=== PATIENT | male | born 2000 | race Hispanic/Latino ===

== ENCOUNTER 2023-12-23 17:13 | Emergency (ER) | payer SELFPAY ==
[2023-12-23] MEDS ORDERED: ONDANSETRON 4 MG/2 ML VIAL ONE (18:31)
[2023-12-23] MEDS ORDERED: FAMOTIDINE 20 MG/2 ML VIAL IV ONE (18:31)
[2023-12-23] MEDS ORDERED: NA CHLORIDE 0.9% 1,000 ML ONE (18:31)
[2023-12-23] MEDS ORDERED: DIPHENHYDRAMINE 50 MG/ML VIAL ONE (18:31)
[2023-12-23] MEDS ORDERED: KETOROLAC 30 MG/ML INJ ONE (18:31)
[2023-12-23 18:52] LABS: Absolute Lymphocytes (CBC) 1.7 K/uL (0.7-4.9); Absolute Neutrophil 6.2 K/uL (1.8-8.0); Basophils % 0.2 % (0-1.3); Eosinophils % 0.3 % (0-4.4); Hemoglobin 13.8 g/dL (13.6-17.9); Lymphocytes % 18.9 % (15.3-44.8); MCHC 34.4 g/dL (32.0-36.0); MCV 84.4 fL (80-100); MPV 8.6 fL (7.6-11.3); Neutrophils % 69.6 % (41.7-73.7); Nucleated Red Blood Cells % 0.1 % (0-0); Platelets 214 thou/uL (152-406); RBC Red Blood Cell Count 4.74 M/uL (4.33-5.43); Red Cell Distribution Width 12.8 % (12.1-15.2)
[2023-12-23 19:08] LABS: Albumin 4.4 g/dL (3.4-5.0); Albumin/Globulin Ratio 1.4 (1.1-1.8); Anion Gap 8.1 mEq/L (5.0-15.0); Bilirubin Total 1.2 mg/dL (0.2-1.0); Globulin 3.1 g/dL (2.3-3.5); Potassium 3.1 mEq/L (3.5-5.1); Protein, Total 7.5 g/dL (6.4-8.2)
[2023-12-23 19:13] LABS: Specific Gravity < 1.005 (1.005-1.030); Urine Bilirubin NEGATIVE (Negative); Urine Blood Negative (Negative); Urine Clarity Clear (Clear); Urine Color Colorless (Yellow); Urine Glucose NEGATIVE (Negative); Urine Ketones NEGATIVE (Negative); Urine Microscopic Reflex YN NO UMIC; Urine Nitrite NEGATIVE (Negative); Urine Protein NEGATIVE (Negative); Urine Urobilinogen Normal (Normal)
--- NOTE | 2023-12-23 20:05 | RAD REPORT ---
EXAM DESCRIPTION: RAD - Lumbar Spine 3 Views - 12/23/2023 7:50 pm CLINICAL HISTORY: PAIN COMPARISON: No comparisons FINDINGS/IMPRESSION: No acute fracture. No malalignment. No significant focal degenerative changes.
[2023-12-23] MEDS ORDERED: POTASSIUM 25 MEQ EFFERV TAB ONE (20:28)
--- NOTE | 2023-12-23 21:16 | ER ---
Nurse's Notes [facility] Name: Cali Snyder Age: 23 yrs Sex: Male : 2000 Arrival Date: 12/23/2023 Time: 17:13 Bed 17 Private MD: Diagnosis: Nausea with vomiting, unspecified;Insomnia, unspecified;Low back pain Presentation: 12/22 17:42 Chief complaint: Patient states: LOW BACK PAIN AND VOMITING X3 DAYS. PT DESCRIBES THE cm10 PAIN A PRESSURE AND RATES IT A 6/10. PT ALSO REPORTS THAT HE HAS NOT BEEN ABLE TO SLEEP SINCE HE QUIT VAPING 3 DAYS AGO. Coronavirus screen: Client denies travel out of the [place] in the last 14 days. At this time, the client does not indicate any symptoms associated with coronavirus-19. Ebola Screen: Patient denies travel to an Ebola-affected area in the 21 days before illness onset. No symptoms or risks identified at this time. Initial Sepsis Screen: Does the patient meet any 2 criteria? No. Patient's initial sepsis screen is negative. Does the patient have a suspected source of infection? No. Patient's initial sepsis screen is negative. Risk Assessment: Do you want to hurt yourself or someone else? Patient reports no desire to harm self or others. Onset of symptoms was December 23, 2023. 17:42 Method Of Arrival: Ambulatory cm10 17:42 Acuity: LIZBETH 3 cm10 Triage Assessment: 17:45 General: Appears in no apparent distress. comfortable, Behavior is calm, cooperative. cm10 Pain: Complains of pain in low back area Pain does not radiate. Pain currently is 6 out of 10 on a pain scale. Quality of pain is described as pressure. Neuro: No deficits noted. Level of Consciousness is awake, alert, obeys commands, Oriented to person, place, time, situation, Appropriate for age. Respiratory: No deficits noted. Airway is patent Respiratory effort is even, unlabored, Respiratory pattern is regular, symmetrical. GI: No deficits noted. Reports diarrhea, nausea, vomiting. Derm: No deficits noted. Skin is intact, Skin is pink, warm \T\ dry. Musculoskeletal: No deficits noted. Range of motion: intact in all extremities. Historical: - Allergies: 17:44 EXCEDRIN; cm10 - Home Meds: 17:44 None [Active]; cm10 - PMHx: 17:44 None; cm10 - PSHx: 17:44 None; cm10 - Immunization history:: Adult Immunizations up to date. - Infectious Disease History:: Denies. - Social history:: Smoking status: Reported history of juuling and/or vaping. Screenin:47 [facility] ED Fall Risk Assessment (Adult) History of falling in the last 3 months, cm10 including since admission No falls in past 3 months (0 pts) Confusion or Disorientation No (0 pts) Intoxicated or Sedated No (0 pts) Impaired Gait No (0 pts) Mobility Assist Device Used No (0 pt) Altered Elimination No (0 pt) Score/Fall Risk Level 0 - 2 = Low Risk Oriented to surroundings, Maintained a safe environment, Provided non-skid footwear, Hourly rounding (assess needs \T\ fall precautionary measures) done. Abuse screen: Denies threats or abuse. Denies injuries from another. Nutritional screening: No deficits noted. Tuberculosis screening: No symptoms or risk factors identified. Assessment: 19:48 General: Appears in no apparent distress. Behavior is calm, cooperative. Pain: Denies tm6 pain. Neuro: Level of Consciousness is awake, alert, obeys commands, Oriented to person, place, time, situation. Cardiovascular: No deficits noted. Patient's skin is warm and dry. Respiratory: Airway is patent Respiratory effort is even, unlabored, Respiratory pattern is regular, symmetrical. GI: Abdomen is flat, non-distended, Abd is soft and non tender X 4 quads. : No signs and/or symptoms were reported regarding the genitourinary system. EENT: No signs and/or symptoms were reported regarding the EENT system. Derm: No signs and/or symptoms reported regarding the dermatologic system. Musculoskeletal: Reports pressure in low back. 21:18 Reassessment: Patient appears in no apparent distress at this time. Patient and/or tm6 family updated on plan of care and expected duration. Pain level reassessed. Patient is alert, oriented x 3, equal unlabored respirations, skin warm/dry/pink. Vital Signs: 17:42 BP 127 / 91; Pulse 70; Resp 18; Temp 98.2; Pulse Ox 100% ; Weight 52.16 kg; Height 5 cm10 ft. 6 in. ; Pain 6/10; 19:47 BP 109 / 69; Pulse 89; Pulse Ox 100% on R/A; Pain 0/10; tm6 21:18 BP 125 / 91; Pulse 83; Resp 17; Temp 98.2; Pulse Ox 99% on R/A; Pain 0/10; tm6 17:42 Body Mass Index 18.56 (52.16 kg, 167.64 cm) cm10 17:42 Pain Scale: Adult cm10 19:47 Pain Scale: Adult tm6 21:18 Pain Scale: Adult tm6 ED Course: 17:21 Patient arrived in ED. mg5 17:31 David Elizondo PA is PHCP. cp 17:31 David Hebert MD is Attending Physician. cp 17:42 Silvia Thomson RN is Primary Nurse. cm10 17:44 Triage completed. cm10 17:47 Arm band placed on Patient placed in an exam room, on a stretcher. cm10 17:47 Patient has correct armband on for positive identification. Bed in low position. Call cm10 light in reach. Side rails up X 1. Provided Education on: ER PROCESS AND PROCEDURES.. Pulse ox on. NIBP on. 18:46 CBC with Diff Sent. cm10 18:46 CMP Sent. cm10 18:46 Lipase Sent. cm10 18:46 Urinalysis w/ reflexes Sent. cm10 18:46 Initial lab(s) drawn, by in, sent to lab. Urine collected: clean catch specimen. cm10 Inserted saline lock: 20 gauge in right antecubital area, using aseptic technique. Blood collected. Flushed with 10 mL NS. 19:11 Report given to SUPA Villagomez. cm10 19:45 Dahlia Koenig RN is Primary Nurse. tm6 19:52 XRAY Lumbar Spine (3 Views) In Process Unspecified. EDMS 21:18 No provider procedures requiring assistance completed. IV discontinued, intact, tm6 bleeding controlled, No redness/swelling at site. Pressure dressing applied. Administered Medications: 18:45 Drug: diphenhydrAMINE IVP 25 mg IVP once Route: IVP; Site: right antecubital; cm10 19:47 Follow up: Response: No adverse reaction; Marked relief of symptoms tm6 18:46 Drug: NS 0.9% IV 1000 ml IV at 1 bolus Per protocol; 1000 mL bolus Route: IV; Rate: 1 cm10 bolus; Site: right antecubital; 19:47 Follow up: Response: No adverse reaction; IV Status: Completed infusion; IV Intake: tm6 1000ml 18:46 Drug: Famotidine IVP 20 mg IVP once; dilute with 10 mL 0.9% NaCl; give over 2 minutes cm10 Route: IVP; Site: right antecubital; 19:47 Follow up: Response: No adverse reaction; Marked relief of symptoms tm6 18:46 Drug: TORadol - Ketorolac IVP 15 mg IVP once Route: IVP; Site: right antecubital; cm10 19:46 Follow up: Response: No adverse reaction; Marked relief of symptoms tm6 18:46 Drug: Ondansetron IVP 4 mg IVP once; over 2 minutes Route: IVP; Site: right antecubital;cm10 19:47 Follow up: Response: No adverse reaction; Marked relief of symptoms tm6 20:37 Drug: Potassium PO Effervescent Tablet 50 mEq PO once; dissolve in 4 ounces of water or tm6 juice Route: PO; 21:05 Follow up: Response: No adverse reaction tm6 Medication: 17:47 VIS not applicable for this client. cm10 Intake: 19:47 IV: 1000ml; Total: 1000ml. tm6 Outcome: 21:15 Discharge ordered by . cp 21:18 Discharged to home ambulatory, with family, tm6 21:18 Condition: stable 21:18 Discharge instructions given to patient, family, Instructed on discharge instructions, follow up and referral plans. medication usage, Demonstrated understanding of instructions, follow-up care, medications, Prescriptions given X 2, 21:24 Patient left the ED. tm6 Signatures: Dispatcher [employer] EDMS David Elizondo PA PA cp Martinez, Clarissa RN RN cm10 Nichole Nuno mg5 Dahlia Koenig RN RN tm6
--- NOTE | 2023-12-23 21:16 | EDPHYS ---
Physician Documentation [facility] Name: Cali Snyder Age: 23 yrs Sex: Male : 2000 Arrival Date: 12/23/2023 Time: 17:13 Bed 17 Private MD: ED Physician David Hebert HPI: 12/22 18:05 This 23 yrs old Male presents to ER via Ambulatory with complaints of cp Vomiting, Havent Slept in 3 Days. 18:05 The patient presents to the emergency department with nausea, that is moderate, cp vomiting, that is intermittent, described as bilious. Onset: The symptoms/episode began/occurred 3 day(s) ago. 18:05 Patient reports inability to sleep and N/V times 3 days since quitting vaping. cp Historical: - Allergies: 17:44 EXCEDRIN; cm10 - Home Meds: 17:44 None [Active]; cm10 - PMHx: 17:44 None; cm10 - PSHx: 17:44 None; cm10 - Immunization history:: Adult Immunizations up to date. - Infectious Disease History:: Denies. - Social history:: Smoking status: Reported history of juuling and/or vaping. ROS: 18:05 Constitutional: Negative for body aches, chills, fever, poor PO intake, cp 18:05 Abdomen/GI: Positive for nausea and vomiting, 18:05 Psych: Positive for insomnia, 18:05 All other systems are negative, Vital Signs: 17:42 BP 127 / 91; Pulse 70; Resp 18; Temp 98.2; Pulse Ox 100% ; Weight 52.16 kg; Height 5 cm10 ft. 6 in. ; Pain 6/10; 19:47 BP 109 / 69; Pulse 89; Pulse Ox 100% on R/A; Pain 0/10; tm6 21:18 BP 125 / 91; Pulse 83; Resp 17; Temp 98.2; Pulse Ox 99% on R/A; Pain 0/10; tm6 17:42 Body Mass Index 18.56 (52.16 kg, 167.64 cm) cm10 17:42 Pain Scale: Adult cm10 19:47 Pain Scale: Adult tm6 21:18 Pain Scale: Adult tm6 MDM: 17:31 Patient medically screened. cp 12/22 18:01 Order name: CBC with Diff; Complete Time: 19:36 cp 08/ 18:01 Order name: CMP; Complete Time: 19:36 cp 12/22 18:01 Order name: Lipase; Complete Time: 19:36 cp 12/22 18:01 Order name: Urinalysis w/ reflexes; Complete Time: 19:36 cp 08/ 19:37 Order name: XRAY Lumbar Spine (3 Views); Complete Time: 20:19 cp 12/22 18:01 Order name: IV Saline Lock; Complete Time: 18:45 cp 12/22 18:01 Order name: Labs collected and sent; Complete Time: 18:45 cp Administered Medications: 18:45 Drug: diphenhydrAMINE IVP 25 mg IVP once Route: IVP; Site: right antecubital; cm10 19:47 Follow up: Response: No adverse reaction; Marked relief of symptoms tm6 18:46 Drug: NS 0.9% IV 1000 ml IV at 1 bolus Per protocol; 1000 mL bolus Route: IV; Rate: 1 cm10 bolus; Site: right antecubital; 19:47 Follow up: Response: No adverse reaction; IV Status: Completed infusion; IV Intake: tm6 1000ml 18:46 Drug: Famotidine IVP 20 mg IVP once; dilute with 10 mL 0.9% NaCl; give over 2 minutes cm10 Route: IVP; Site: right antecubital; 19:47 Follow up: Response: No adverse reaction; Marked relief of symptoms tm6 18:46 Drug: TORadol - Ketorolac IVP 15 mg IVP once Route: IVP; Site: right antecubital; cm10 19:46 Follow up: Response: No adverse reaction; Marked relief of symptoms tm6 18:46 Drug: Ondansetron IVP 4 mg IVP once; over 2 minutes Route: IVP; Site: right antecubital;cm10 19:47 Follow up: Response: No adverse reaction; Marked relief of symptoms tm6 20:37 Drug: Potassium PO Effervescent Tablet 50 mEq PO once; dissolve in 4 ounces of water or tm6 juice Route: PO; 21:05 Follow up: Response: No adverse reaction tm6 Disposition Summary: 12/23/23 21:15 Discharge Ordered Notes: Location: Home cp Problem: new cp Symptoms: have improved cp Condition: Stable cp Diagnosis - Nausea with vomiting, unspecified cp - Insomnia, unspecified cp - Low back pain cp Followup: cp - With: Private Physician - When: 2 - 3 days - Reason: Worsening of condition Discharge Instructions: - Discharge Summary Sheet cp - Acute Back Pain, Adult cp - Insomnia cp - Nausea and Vomiting, Adult cp - Heat Therapy cp - Back Exercises cp Forms: - Medication Reconciliation Form cp - Antibiotic Education cp - Prescription Opioid Use cp - Patient Portal Instructions cp - Leadership Thank You Letter cp - Work release form tm6 Prescriptions: - Vistaril 25 mg Oral capsule - take 2 capsule ORAL route Every night As needed; 20 capsule; Refills: 0, cp Product Selection Permitted - Zofran 4 mg Oral Tablet - take 1 tablet ORAL route every 12 hours As needed; 20 tablet; Refills: 0, cp Product Selection Permitted Signatures: Dispatcher [employer] EDMS David Elizondo PA PA cp Martinez, Clarissa RN RN cm10 Dahlia Koenig RN RN tm6 Corrections: (The following items were deleted from the chart) 18:02 18:02 CBC+H.LAB.BRZ ordered. EDMS EDMS 18:02 18:02 COMPREHENSIVE METABOLIC PANEL+C.LAB.BRZ ordered. EDMS EDMS 18:02 18:02 LIPASE+C.LAB.BRZ ordered. EDMS EDMS 18:02 18:02 Urinalysis+U.LAB.BRZ ordered. EDMS EDMS
[2023-12-23 21:41] VITALS: TEMP 98.2
[2023-12-23 21:43] VITALS: BP 125/91; O2SAT 99
== END 2023-12-23 21:24 | disposition home or self-care (01) ==
LOC: ER 17:13
DX: R11.2 Nausea with vomiting, unspecified (principal); G47.00 Insomnia, unspecified; M54.50 Low back pain, unspecified
CPT/HCPCS: 36415; 72100; 80053; 81003; 83690; 85025; 96361; 96374; 96375; 99284; J1200; J2405; J7030

== ENCOUNTER 2024-09-23 13:13 | Emergency (ER) | payer BC, SELFPAY ==
--- OUTSIDE RECORDS SUMMARY | 2024-09-23 13:17 | XMS REPORT | Continuity of Care Document ---
Author Name Unknown Address [address] [place] [address] [address]. [address] [place] [address] [facility] [address] [facility] 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 Ordering Clinician Indication Dosage Frequency Signature (SIG) Comments Components Source doxycycline monohydrate 100 mg tablet 08-16 00:00: 00 Yes 1mg Richi Panchal montelukast 10 mg tablet 2023-05 2 00:00: 00 Yes 1mg Richi Panchal mirtazapine 7.5 mg tablet 12-25 00:00: 00 Yes 1mg Richi Panchal APPLY SPARINGLY TO AFFECTED AREA(S) TWICE DAILY 12-29 00:00: 00 Yes 1 Richi Panchal TAKE 1 TABLET BY MOUTH TWICE DAILY 09-29 00:00: 00 01-12 00:00 :00 No 1000 Richi Panchal TAKE 1 TABLET TWICE DAILY. 09-29 00:00: 00 01-12 00:00 :00 No 4 Richi Panchal TAKE 1 TABLET DAILY. 09-29 00:00: 00 01-12 00:00 :00 No 20 Richi Panchal TAKE 1 TABLET TWICE DAILY. 09-29 00:00: 00 01-12 00:00 :00 No 50 Richi Panchal TAKE 1 CAPSULE TWICE DAILY. 09-29 00:00: 00 01-12 00:00 :00 No 100 Richi Panchal Vital Signs Vital Name Observation Time Observation Value Comments S ource BP Systolic 2024-08-16 13:19:00 122 mm[Hg] Step hen F Abdulkadir BP Diastolic 2024-08-16 13:19:00 88 mm[Hg] Stan phen F Abdulkadir Weight Measured 2024-08-16 13:19:00 118.00 pounds Richi F Abdulkadir Height Measured 2024-08-16 13:19:00 66.00 inches Richi F Abdulkadir Body Temperature 2024-08-16 13:19:00 98.20 degrees Richi F Abdulkadir Heart Rate 2024-08-16 13:19:00 82.00 /min Mary Jane en F Abdulkadir Respiratory Rate 2024-08-16 13:19:00 18.00 /min Richi F Abdulkadir BP Systolic 2024-04-26 09:15:00 116 mm[Hg] Step hen F Abdulkadir BP Diastolic 2024-04-26 09:15:00 79 mm[Hg] Stan phen F Abdulkadir Weight Measured 2024-04-26 09:15:00 118.80 pounds Richi F Abdulkadir Height Measured 2024-04-26 09:15:00 66.00 inches Richi F Abdulkadir Body Temperature 2024-04-26 09:15:00 98.20 degrees Richi F Abdulkadir Heart Rate 2024-04-26 09:15:00 86.00 /min Mary Jane en F Abdulkadir Respiratory Rate 2024-04-26 09:15:00 18.00 /min Richi F Abdulkadir BP Diastolic 2024-01-09 12:40:00 78 mm[Hg] Stan phen F Abdulkadir Weight Measured 2024-01-09 12:40:00 113.80 pounds Richi F Abdulkadir Height Measured 2024-01-09 12:40:00 66.00 inches Richi F Abdulkadir Body Temperature 2024-01-09 12:40:00 97.60 degrees Richi F Abdulkadir Heart Rate 2024-01-09 12:40:00 78.00 /min Mary Jane en F Abdulkadir Respiratory Rate 2024-01-09 12:40:00 Richi F Abdulkadir BP Systolic 2024-01-09 12:40:00 121 mm[Hg] Step hen F Abdulkadir BP Systolic 2023-01-09 16:46:00 91 mm[Hg] Step hen F Abdulkadir BP Diastolic 2023-01-09 16:46:00 57 mm[Hg] Stan phen F Abdulkadir Weight Measured 2023-01-09 16:46:00 115.40 pounds Richi F Abdulkadir Height Measured 2023-01-09 16:46:00 66.00 inches Richi F Abdulkadir Body Temperature 2023-01-09 16:46:00 97.60 degrees Richi F Abdulkadir Heart Rate 2023-01-09 16:46:00 61.00 /min Mary Jane en F Abdulkadir Respiratory Rate 2023-01-09 16:46:00 Richi F Abdulkadir BP Systolic 2022-12-29 10:55:00 77 mm[Hg] Step hen F Abdulkadir BP Diastolic 2022-12-29 10:55:00 50 mm[Hg] Stan phen F Abdulkadir Weight Measured 2022-12-29 10:55:00 113.80 pounds Richi F Abdulkadir Height Measured 2022-12-29 10:55:00 66.00 inches Richi F Abdulkadir Body Temperature 2022-12-29 10:55:00 97.50 degrees Richi F Abdulkadir Heart Rate 2022-12-29 10:55:00 77.00 /min Mary Jane en F Abdulkadir Respiratory Rate 2022-12-29 10:55:00 Richi F Abdulkadir BP Systolic 2022-09-29 09:26:00 125 mm[Hg] Step hen F Abdulkadir BP Diastolic 2022-09-29 09:26:00 88 mm[Hg] Stan phen F Abdulkadir Weight Measured 2022-09-29 09:26:00 114.40 pounds Richi F Abdulkadir Height Measured 2022-09-29 09:26:00 66.00 inches Richi F Abdulkadir Body Temperature 2022-09-29 09:26:00 98.00 degrees Richi F Abdulkadir Heart Rate 2022-09-29 09:26:00 69.00 /min Mary Jane en F Abdulkadir Respiratory Rate 2022-09-29 09:26:00 Richi F Abdulkadir BP Systolic 2022-09-26 13:24:00 106 mm[Hg] Step hen F Abdulkadir BP Diastolic 2022-09-26 13:24:00 63 mm[Hg] Stan phen F Abdulkadir Weight Measured 2022-09-26 13:24:00 111.60 pounds Richi F Abdulkadir Height Measured 2022-09-26 13:24:00 66.00 inches Richi F Abdulkadir Body Temperature 2022-09-26 13:24:00 97.90 degrees Richi Panchal Heart Rate 2022-09-26 13:24:00 67.00 /min Mary Jane Panchal Respiratory Rate 2022-09-26 13:24:00 24.00 /min Richi Panchal Encounters Start Date/Time End Date/Time Encounter Type Admission Type Attending [facility] Care Department Encounter ID Source 2024-08-16 13:14:11 2024-08-16 13:14:11 Outpatient SFA SFA [id number] Richi Panchal 2024-08-16 00:00:00 2024-08-16 00:00:00 Outpatient Visit SFA [id number] Richi Panchal 2024-04-26 09:06:55 2024-04-26 09:06:55 Outpatient SFA SFA [id number] Richi Panchal 2024-04-26 00:00:00 2024-04-26 00:00:00 Outpatient Visit SFA [id number] Richi Panchal 2024-02-06 09:22:43 2024-02-06 09:22:43 Outpatient SFA SFA [id number] Richi Panchal 2024-01-09 12:34:45 2024-01-09 12:34:45 Outpatient SFA SFA [id number] Richi Panchal 2023-12-26 13:20:42 2023-12-26 13:20:42 Outpatient SFA SFA [id number] Richi Panchal 2023-12-25 14:47:13 2023-12-25 14:47:13 Outpatient SFA SFA [id number] Richi Panchal 2023-01-09 16:45:55 2023-01-09 16:45:55 Outpatient SFA SFA [id number] Richi Panchal 2022-12-29 10:55:10 2022-12-29 10:55:10 Outpatient SFA SFA [id number] Richi Panchal 2022-09-29 09:17:2022-09-29 09:17:41 Outpatient [facility] [id number] Richi Panchal 2022-09-26 13:19:00 2022-09-26 13:19:00 Outpatient [facility] [id number] Richi Panchal Results Test Description Test Time Test Comments Results Result Co mments Source HERPES SIMPLEX 1/2 AB, IgG [id number] 05:50:20* Test Item Value Reference Range Interpretation Comme nts HERPES SIMPLEX 1 AB, IgG (test code = 36315) 0.025 INDEX SEE BELOW INTERPRETATION U NITS RANGE ----- ----- NON-REACTIVE INDEX <1.000 REACTIVE INDEX >=1.000 HERPES SIMPLEX 2 AB, IgG (test code = 75668) 0.080 INDEX SEE BELOW INTERPRETATION U NITS RANGE ----- ----- NON-REACTIVE INDEX <1.000 REACTIVE INDEX >=1.000 UNLESS OTHERWISE INDICATED, ALL TESTING PERFORMED AT [facility] [address] [place] [address] GRINDER MACHINE SETTER: ELIZABETH CAMPBELL M.D. [place] NUMBER [id number] [facility] [place]. [id number] HERPES SIMPLEX [id number] 00:00:00* Test Item Value Reference Range Interpretation Comme nts HERPES SIMPLEX AB, IgM (test code = 70404) 0.82 INDEX Richi PanchalHERPES SIMPLEX 1/2 [id number] 00:00:00* Test Item Value Reference Range Interpretation Comme nts HERPES SIMPLEX 1 AB, IgG (te st code = 18244) 0.025 INDEX HERPES SIMPLEX 2 AB, IgG (te st code = 25157) 0.080 INDEX Richi RomeroPES SIMPLEX [id number] 00:00:00* Test Item Value Reference Range Interpretation Comme nts HERPES SIMPLEX AB, IgM (test code = 02828) 0.82 INDEX Richi PanchalHERPES SIMPLEX 1/2 [id number] 00:00:00* Test Item Value Reference Range Interpretation Comme nts HERPES SIMPLEX 1 AB, IgG (te st code = 70386) 0.025 INDEX HERPES SIMPLEX 2 AB, IgG (te st code = 44936) 0.080 INDEX Richi Frye, [id number] 13:31:58SPECIMEN NUMBER: [id number] CULTURE, ROUTINE SPECIMEN NUMBER: [id number] SPECIMEN COMMENT: PENIS GLAND ;[id number] SOURCE: PENIS REPORT STATUS: FINAL FINAL REPORT: 01/04/2023 ABUNDANT MIXED MICROBIAL POPULATION NO FURTHER WORKUPNOTE:2023-01-03 06:03:56* Test Item Value Reference Range Interpretation Comme nts NOTE: (test code = 998) (NOTE) IN ACCORDANCE [facility] FEDERAL GUIDELINES REQUIRING ALL VERBAL REQUESTS FOR LABORATORY TESTS TO BE ACCOMPANIED BY WRITTEN AUTHORIZATION WITHIN 30 DAYS OF THIS REQUEST, PLEASE SIGN BELOW AND RETURN A COPY OF THIS REPORT BY FAX TO THE LABORATORY SCANNING DEPARTMENT AT [phone]. PHYSICIAN'S SIGNATURE DATE UNLESS OTHERWISE INDICATED, ALL TESTING PERFORMED AT [facility] [address] [place] [address] GRINDER MACHINE SETTER: ELIZABETH CAMPBELL M.D. CLIA NUMBER [id number] [facility] [place]. [id number] CT/NG, NAAT, [id number] 18:56:24* Test Item Value Reference Range Interpretation Comme nts CHLAMYDIA, NAAT, URINE (test code = 87617) NEGATIVE NEGATIVE Testing is perfo rmed with [employer] 6800/8800 systems usingreal-time polymerase chain reaction (PCR) method. A negative result does not exclude low level infection, specimensampling error, or collection error. GONORRHEA, NAAT, URINE (test code = 04824) NEGATIVE NEGATIVE Testing is perfo rmed with [employer] 6800/8800 systems usingreal-time polymerase chain reaction (PCR) method. A negative result does not exclude low level infection, specimensampling error, or collection error. HERPES SIMPLEX AB, [id number] 15:04:54* Test Item Value Reference Range Interpretation Comme nts HERPES SIMPLEX AB, IgM (test code = 38742) 1.02 INDEX SEE BELOW H FOR EQUIVOCAL HS V IgM, CONSIDER RECOLLECTION AND RETESTING IgM IN 10-14 DAYS. CORRELATE WITH HSV IgG TESTING AND CLINICAL HISTORY TO ASSIST WITH INTERPRETATION. IMPORTANT NOTE: HSV IgM ASSAYS ARE NOT TYPE-SPECIFIC. THE BIOLOGICALIgM RESPONSE WITH PRIMARY INFECTIONS IS VARIABLE AND MAY BEUNDETECTABLE; WITH RECURRENT INFECTIONS IgM MAY OR MAY NOT BEDETECTED. FALSE POSITIVE RESULTS UNRELATED TO HSV INFECTION CAN OCCURWITH HSV IgM ASSAYS. ALL RESULTS SHOULD BE REVIEWED IN CLINICALCONTEXT, AND COMPARISON TO ACUTE OR CONVALESCENT TYPE-SPECIFIC [id number] HSV2 IgG ASSAYS SHOULD BE CONSIDERED. INTERPRETATION UNITS RANGE ----- ----- NEGATIVE INDEX <=0.89 EQUIVOCAL INDEX 0.90-1.09 POSITIVE INDEX >=1.10 HERPES SIMPLEX 1/2 AB, IgG [id number] 04:28:30* Test Item Value Reference Range Interpretation [facility] HERPES SIMPLEX 1 AB, IgG (test code = 59913) 0.024 INDEX SEE BELOW INTERPRETATION U NITS RANGE ----- ----- NON-REACTIVE INDEX <1.000 REACTIVE INDEX >=1.000 HERPES SIMPLEX 2 AB, IgG (test code = 86782) 0.077 INDEX SEE BELOW INTERPRETATION U NITS RANGE ----- ----- NON-REACTIVE INDEX <1.000 REACTIVE INDEX >=1.000 HIV 1/2 4TH GEN, RFLX [id number] 04:28:30* Test Item Value Reference Range Interpretation [facility] HIV 1/2 4TH GEN, RFLX CONF ( test code = 3514) NON-REACTIVE NON-REACTIVE HEPATITIS PANEL, [id number] 04:28:30* Test Item Value Reference Range Interpretation [facility] HEPATITIS A IgM (test code = 20380) NON-REACTIVE NON-REACTIVE HEPATITIS B CORE IgM (test code = 4644) NON-REACTIVE NON-REACTIVE HEPATITIS B SURF AG (test code = 2739) NON-REACTIVE NON-REACTIVE HEPATITIS C ANTIBODY (test code = 4675) NON-REACTIVE NON-REACTIVE INTERPRETATION HEPATITIS A: (test code = 2552) (NOTE) Hepatitis A serology shows no evidence of acute hepatitis A. INTERPRETATION HEPATITIS B: (test code = 75679) (NOTE) Hepatitis B serology shows no evidence of acute hepatitis B andno indication of exposure to hepatitis B virus in the previous cindy eight months. INTERPRETATION HEPATITIS C: (test code = 18549) (NOTE) Hepatitis C serology shows no evidence of exposure to hepatitisC virus at this time. It can take up to 12 months after exposure tothe hepatitis C virus for antibodies to become detectable in the blood in certain patients. COMPREHENSIVE METABOLIC [id number] 04:09:15* Test Item Value Reference Range Interpretation Comme nts GLUCOSE (test code = 2216) 79 MG/DL 70-99 BUN (test code = 2207) 10 MG/DL 6-20 CREATININE (test code = 2213) 0.86 MG/DL 0.80-1.40 eGFR (2020 CKD-EPI) (test code = 20528) 126 ML/MIN/1.73 >60 CALC BUN/CREAT (test code = 2234) 12 RATIO 6-28 SODIUM (test code = 223) 142 MEQ/L 133-146 POTASSIUM (test code = 2228) 3.7 MEQ/L 3.5-5.4 CHLORIDE (test code = 2214) 100 MEQ/L 95-107 CARBON DIOXIDE (test code = 2205) 30 MEQ/L 19-31 CALCIUM (test code = 220) 9.6 MG/DL 8.5-10.5 PROTEIN, TOTAL (test code = 2228) 6.7 G/DL 6.1-8.3 ALBUMIN (test code = 2200) 4.7 G/DL 3.5-5.2 CALC GLOBULIN (test code = 2240) 2.0 G/DL 1.9-3.7 CALC A/G RATIO (test code = 2233) 2.4 RATIO 1.0-2.6 BILIRUBIN, TOTAL (test code = 2206) 0.4 MG/DL See_Comment [Automated me ssage] The system which generated this result transmitted reference range: <=1.2. The reference range was not used to interpret this result as normal/abnormal. ALKALINE PHOSPHATASE (test code = 2203) 66 U/L 44-129 AST (test code = 8) 15 U/L 9-50 ALT (test code = 2219) 14 U/L 5-50 [id number] 03:52:13* Test Item Value Reference Range Interpretation Comme nts RPR RESULT (test code = 3501) NON-REACTIVE NON-REACTIVE RPR TITER (test code = 3500) NOT INDIC. TITER NOT INDIC. UNLESS OTHERWISE INDICATED, ALL TESTING PERFORMED AT [facility] [address] [facility] [address] GRINDER MACHINE SETTER: ELIZABETH CAMPBELL M.D. CLIA NUMBER [id number] [facility]. [id number] CBC W/AUTO DIFF WITH [id number] 02:55:02* Test Item Value Reference Range Interpretation Comme nts WBC (test code = 1001) 5.6 K/UL 3.5-11.0 RBC (test code = 1002) 4.59 M/UL 4.50-6.10 HEMOGLOBIN (test code = 1003) 13.6 G/DL 13.5-17.0 HEMATOCRIT (test code = 1004) 40.9 % 40.0-51.0 MCV (test code = 1005) 89.1 fL 80.0-99.0 MCH (test code = 1006) 29.6 PG 25.0-33.0 MCHC (test code = 1007) 33.3 G/DL 31.0-36.0 RDW (test code = 1038) 12.5 % 11.5-15.0 NEUTROPHILS (test code = 1008) 65.9 % LYMPHOCYTES (test code = 1010) 22.9 % MONOCYTES (test code = 1011) 8.5 % EOSINOPHILS (test code = 1012) 2.3 % BASOPHILS (test code = 1013) 0.2 % IMMATURE GRANULOCYTES (test code = 1036) 0.2 % NUCLEATED RBCS (test code = 1065) 0.0 /100 WBC'S See_Comment [Automated [employer] ge] The system which generated this result transmitted reference range: 0.0. The reference range was not used to interpret this result as normal/abnormal. PLATELET COUNT (test code = 1015) 212 K/UL 130-400 ABSOLUTE NEUTROPHILS (test code = 1066) 3.71 K/UL 1.50-7.50 ABSOLUTE LYMPHOCYTES (test code = 1067) 1.29 K/UL 1.00-4.00 ABSOLUTE MONOCYTES (test code = 1068) 0.48 K/UL 0.20-1.00 ABSOLUTE EOSINOPHILS (test code = 1040) 0.13 K/UL 0.00-0.50 ABSOLUTE BASOPHILS (test code = 1069) 0.01 K/UL 0.00-0.20 ABS IMMATURE GRANULOCYTES (test code = 1020) 0.01 K/UL 0.00-0.10 ABS NUCLEATED RBCS (test code = 22595) 0.00 K/UL 0.00-0.11 HERPES SIMPLEX 1/2 [id number] 00:00:00* Test Item Value Reference Range Interpretation Comme nts HERPES SIMPLEX 1 AB, IgG (te st code = 16187) 0.024 INDEX HERPES SIMPLEX 2 AB, IgG (te st code = 18416) 0.077 INDEX Richi PanchalHIV 1/2 4TH GEN, RFLX [id number] 00:00:00* Test Item Value Reference Range Interpretation Comme nts HIV 1/2 4TH GEN, RFLX CONF ( test code = 3514) NON-REACTIVE Richi PanchalACUTE HEPATITIS [id number] 00:00:00* Test Item Value Reference Range Interpretation Comme nts HEPATITIS A IgM (test code = 22324) NON-REACTIVE HEPATITIS B CORE IgM (test c ode = 4644) NON-REACTIVE HEPATITIS B SURF AG (test co de = 2739) NON-REACTIVE HEPATITIS C ANTIBODY (test c ode = 4675) NON-REACTIVE INTERPRETATION HEPATITIS A: (test code = 2552) (NOTE) INTERPRETATION HEPATITIS B: (test code = 76250) (NOTE) INTERPRETATION HEPATITIS C: (test code = 45839) (NOTE) Richi PanchalCT/NG, TMA, [id number] 00:00:00* Test Item Value Reference Range Interpretation Comme nts CHLAMYDIA, NAAT, URINE (test code = 79659) NEGATIVE GONORRHEA, NAAT, URINE (test code = 24727) NEGATIVE Richi [id number] 00:00:00* Test Item Value Reference Range Interpretation Comme nts RPR RESULT (test code = 3501) NON-REACTIVE RPR TITER (test code = 3500) NOT INDIC. TITER Richi PanchalCOMPREHENSIVE METABOLIC [id number] 00:00:00* Test Item Value Reference Range Interpretation Comme nts GLUCOSE (test code = 2217) 79 MG/DL BUN (test code = 2208) 10 MG/DL CREATININE (test code = 2214) 0.86 MG/DL eGFR (2020 CKD-EPI) (test code = 14740) 126 ML/MIN/1.73 CALC BUN/CREAT (test code = 2235) 12 RATIO SODIUM (test code = 2231) 142 MEQ/L POTASSIUM (test code = 2228) 3.7 MEQ/L CHLORIDE (test code = 2215) 100 MEQ/L CARBON DIOXIDE (test code = 2206) 30 MEQ/L CALCIUM (test code = 2209) 9.6 MG/DL PROTEIN, TOTAL (test code = 2229) 6.7 G/DL ALBUMIN (test code = 2201) 4.7 G/DL CALC GLOBULIN (test code = 2240) 2.0 G/DL CALC A/G RATIO (test code = 2234) 2.4 RATIO BILIRUBIN, TOTAL (test code = 2207) 0.4 MG/DL ALKALINE PHOSPHATASE (test code = 2204) 66 U/L AST (test code = 2218) 15 U/L ALT (test code = 2219) 14 U/L Richi Farrell [facility] W/AUTO [id number] 00:00:00* Test Item Value Reference Range Interpretation Comme nts WBC (test code = 1001) 5.6 K/UL RBC (test code = 1002) 4.59 M/UL HEMOGLOBIN (test code = 1003) 13.6 G/DL HEMATOCRIT (test code = 1004) 40.9 % MCV (test code = 1005) 89.1 fL MCH (test code = 1006) 29.6 PG MCHC (test code = 1007) 33.3 G/DL RDW (test code = 1038) 12.5 % NEUTROPHILS (test code = 1008) 65.9 % LYMPHOCYTES (test code = 1010) 22.9 % MONOCYTES (test code = 1011) 8.5 % EOSINOPHILS (test code = 1012) 2.3 % BASOPHILS (test code = 1013) 0.2 % IMMATURE GRANULOCYTES (test code = 1036) 0.2 % NUCLEATED RBCS (test code = 1065) 0.0 /100WBC'S PLATELET COUNT (test code = 1015) 212 K/UL ABSOLUTE NEUTROPHILS (test c ode = 1066) 3.71 K/UL ABSOLUTE LYMPHOCYTES (test c ode = 1067) 1.29 K/UL ABSOLUTE MONOCYTES (test cod e = 1068) 0.48 K/UL ABSOLUTE EOSINOPHILS (test c ode = 1040) 0.13 K/UL ABSOLUTE BASOPHILS (test cod e = 1069) 0.01 K/UL ABS IMMATURE GRANULOCYTES (t est code = 1020) 0.01 K/UL ABS NUCLEATED RBCS (test cod e = 53637) 0.00 K/UL Richi Ramirez SIMPLEX [id number] 00:00:00* Test Item Value Reference Range Interpretation Comme nts HERPES SIMPLEX AB, IgM (test code = 61947) 1.02 INDEX Richi PanchalHERPES SIMPLEX 1/2 [id number] 00:00:00* Test Item Value Reference Range Interpretation Comme nts HERPES SIMPLEX 1 AB, IgG (te st code = 85964) 0.024 INDEX HERPES SIMPLEX 2 AB, IgG (te st code = 49183) 0.077 INDEX Richi PanchalHIV 1/2 4TH GEN, RFLX [id number] 00:00:00* Test Item Value Reference Range Interpretation Comme nts HIV 1/2 4TH GEN, RFLX CONF ( test code = 3514) NON-REACTIVE Richi PanchalACUTE HEPATITIS [id number] 00:00:00* Test Item Value Reference Range Interpretation Comme nts HEPATITIS A IgM (test code = 85970) NON-REACTIVE HEPATITIS B CORE IgM (test c ode = 4644) NON-REACTIVE HEPATITIS B SURF AG (test co de = 2739) NON-REACTIVE HEPATITIS C ANTIBODY (test c ode = 4675) NON-REACTIVE INTERPRETATION HEPATITIS A: (test code = 2552) (NOTE) INTERPRETATION HEPATITIS B: (test code = 18826) (NOTE) INTERPRETATION HEPATITIS C: (test code = 78965) (NOTE) Richi PanchalCT/NG, TMA, [id number] 00:00:00* Test Item Value Reference Range Interpretation Comme nts CHLAMYDIA, NAAT, URINE (test code = 14542) NEGATIVE GONORRHEA, NAAT, URINE (test code = 89002) NEGATIVE Richi [id number] 00:00:00* Test Item Value Reference Range Interpretation Comme nts RPR RESULT (test code = 3501) NON-REACTIVE RPR TITER (test code = 3500) NOT INDIC. TITER Richi PanchalCOMPREHENSIVE METABOLIC [id number] 00:00:00* Test Item Value Reference Range Interpretation Comme nts GLUCOSE (test code = 2217) 79 MG/DL BUN (test code = 2208) 10 MG/DL CREATININE (test code = 2214) 0.86 MG/DL eGFR (2020 CKD-EPI) (test code = 42602) 126 ML/MIN/1.73 CALC BUN/CREAT (test code = 2235) 12 RATIO SODIUM (test code = 2231) 142 MEQ/L POTASSIUM (test code = 2228) 3.7 MEQ/L CHLORIDE (test code = 2215) 100 MEQ/L CARBON DIOXIDE (test code = 2206) 30 MEQ/L CALCIUM (test code = 2209) 9.6 MG/DL PROTEIN, TOTAL (test code = 2229) 6.7 G/DL ALBUMIN (test code = 2201) 4.7 G/DL CALC GLOBULIN (test code = 2240) 2.0 G/DL CALC A/G RATIO (test code = 2234) 2.4 RATIO BILIRUBIN, TOTAL (test code = 2207) 0.4 MG/DL ALKALINE PHOSPHATASE (test code = 2204) 66 U/L AST (test code = 2218) 15 U/L ALT (test code = 2219) 14 U/L Richi Farrell [facility] W/AUTO [id number] 00:00:00* Test Item Value Reference Range Interpretation Comme nts WBC (test code = 1001) 5.6 K/UL RBC (test code = 1002) 4.59 M/UL HEMOGLOBIN (test code = 1003) 13.6 G/DL HEMATOCRIT (test code = 1004) 40.9 % MCV (test code = 1005) 89.1 fL MCH (test code = 1006) 29.6 PG MCHC (test code = 1007) 33.3 G/DL RDW (test code = 1038) 12.5 % NEUTROPHILS (test code = 1008) 65.9 % LYMPHOCYTES (test code = 1010) 22.9 % MONOCYTES (test code = 1011) 8.5 % EOSINOPHILS (test code = 1012) 2.3 % BASOPHILS (test code = 1013) 0.2 % IMMATURE GRANULOCYTES (test code = 1036) 0.2 % NUCLEATED RBCS (test code = 1065) 0.0 /100WBC'S PLATELET COUNT (test code = 1015) 212 K/UL ABSOLUTE NEUTROPHILS (test c ode = 1066) 3.71 K/UL ABSOLUTE LYMPHOCYTES (test c ode = 1067) 1.29 K/UL ABSOLUTE MONOCYTES (test cod e = 1068) 0.48 K/UL ABSOLUTE EOSINOPHILS (test c ode = 1040) 0.13 K/UL ABSOLUTE BASOPHILS (test cod e = 1069) 0.01 K/UL ABS IMMATURE GRANULOCYTES (t est code = 1020) 0.01 K/UL ABS NUCLEATED RBCS (test cod e = 78466) 0.00 K/UL Richi RASHID [id number] 00:00:00* Test Item Value Reference Range Interpretation Comme nts HERPES SIMPLEX AB, IgM (test code = 80919) 1.02 INDEX iRchi Frye, [id number] 13:57:57SPECIMEN NUMBER: [id number] CULTURE, URINE SPECIMEN NUMBER: [id number] SPECIMEN COMMENT: URINE SOURCE: URINE REPORT STATUS: FINAL FINAL REPORT: 09/28/2022 NO GROWTH AFTER 36 HOURS INCUBATIONCULTURE, [id number] 00:00:00* Test Item Value Reference Range Interpretation Comme nts CULTURE, URINE (test code = 81124) SPECIMEN NUMBER: [id number] Richi PanchalCULTALICIA, [id number] 00:00:00* Test Item Value Reference Range Interpretation Comme nts CULTURE, URINE (test code = 11207) SPECIMEN NUMBER: [id number] Richi PanchalCT/NG, NAAT, [id number] 19:02:57* Test Item Value Reference Range Interpretation Comme nts CHLAMYDIA, NAAT, URINE (test code = 54693) POSITIVE NEGATIVE A Assay methodolog y is nucleic acid amplification by transcriptionmediated amplification (TMA) utilizing the Aptima Combo 2 Assay. GONORRHEA, NAAT, URINE (test code = 61772) NEGATIVE NEGATIVE Assay methodolog y is nucleic acid amplification by transcriptionmediated amplification (TMA) utilizing the Aptima Combo 2 Assay. A negative result does not exclude low level infection, specimensampling error, or collection error. HERPES SIMPLEX AB, [id number] 12:48:28* Test Item Value Reference Range Interpretation Comme nts HERPES SIMPLEX AB, IgM (test code = 39007) 0.95 INDEX SEE BELOW H FOR EQUIVOCAL HS V IgM, CONSIDER RECOLLECTION AND RETESTING IgM IN 10-14 DAYS. CORRELATE WITH HSV IgG TESTING AND CLINICAL HISTORY TO ASSIST WITH INTERPRETATION. IMPORTANT NOTE: HSV IgM ASSAYS ARE NOT TYPE-SPECIFIC. THE BIOLOGICALIgM RESPONSE WITH PRIMARY INFECTIONS IS VARIABLE AND MAY BEUNDETECTABLE; WITH RECURRENT INFECTIONS IgM MAY OR MAY NOT BEDETECTED. FALSE POSITIVE RESULTS UNRELATED TO HSV INFECTION CAN OCCURWITH HSV IgM ASSAYS. ALL RESULTS SHOULD BE REVIEWED IN CLINICALCONTEXT, AND COMPARISON TO ACUTE OR CONVALESCENT TYPE-SPECIFIC [id number] HSV2 IgG ASSAYS SHOULD BE CONSIDERED. INTERPRETATION UNITS RANGE ----- ----- NEGATIVE INDEX <=0.89 EQUIVOCAL INDEX 0.90-1.09 POSITIVE INDEX >=1.10 HEPATITIS PANEL, [id number] 11:01:02* Test Item Value Reference Range Interpretation Comme nts HEPATITIS A IgM (test code = 78742) NON-REACTIVE NON-REACTIVE HEPATITIS B CORE IgM (test code = 4644) NON-REACTIVE NON-REACTIVE HEPATITIS B SURF AG (test code = 2739) NON-REACTIVE NON-REACTIVE HEPATITIS C ANTIBODY (test code = 4675) NON-REACTIVE NON-REACTIVE INTERPRETATION HEPATITIS A: (test code = 2552) (NOTE) Hepatitis A serology shows no evidence of acute hepatitis A. INTERPRETATION HEPATITIS B: (test code = 53382) (NOTE) Hepatitis B serology shows no evidence of acute hepatitis B andno indication of exposure to hepatitis B virus in the previous cindy eight months. INTERPRETATION HEPATITIS C: (test code = 36901) (NOTE) Hepatitis C serology shows no evidence of exposure to hepatitisC virus at this time. It can take up to 12 months after exposure tothe hepatitis C virus for antibodies to become detectable in the blood in certain patients. HIV 1/2 4TH GEN, RFLX [id number] 11:01:02* Test Item Value Reference Range Interpretation Comme nts HIV 1/2 4TH GEN, RFLX CONF ( test code = 3514) NON-REACTIVE NON-REACTIVE HERPES SIMPLEX 1/2 AB, IgG [id number] 11:01:02* Test Item Value Reference Range Interpretation Comme nts HERPES SIMPLEX 1 AB, IgG (test code = 06798) 0.031 INDEX SEE BELOW INTERPRETATION U NITS RANGE ----- ----- NON-REACTIVE INDEX <1.000 REACTIVE INDEX >=1.000 HERPES SIMPLEX 2 AB, IgG (test code = 99198) 0.085 INDEX SEE BELOW INTERPRETATION UNITS RANGE ----- ----- NON-REACTIVE INDEX <1.000 REACTIVE INDEX >=1.000 UNLESS OTHERWISE INDICATED, ALL TESTING PERFORMED AT [facility] [address] [place] [address] GRINDER MACHINE SETTER: ELIZABETH CAMPBELL M.D. CLIA NUMBER [id number] [facility] [place]. [id number] 04:25:23* Test Item Value Reference Range Interpretation Comme nts RPR RESULT (test code = 3501) NON-REACTIVE NON-REACTIVE RPR TITER (test code = 3500) NOT INDIC. TITER NOT INDIC. HIV 1/2 4TH GEN, RFLX [id number] 00:00:00* Test Item Value Reference Range Interpretation Comme nts HIV 1/2 4TH GEN, RFLX CONF ( test code = 3514) NON-REACTIVE Richi RomeroPES SIMPLEX [id number] 00:00:00* Test Item Value Reference Range Interpretation Comme nts HERPES SIMPLEX AB, IgM (test code = 14817) 0.95 INDEX Richi RomeroPES SIMPLEX 1/2 [id number] 00:00:00* Test Item Value Reference Range Interpretation Comme nts HERPES SIMPLEX 1 AB, IgG (te st code = 25436) 0.031 INDEX HERPES SIMPLEX 2 AB, IgG (te st code = 47974) 0.085 INDEX Richi Choudhary HEPATITIS [id number] 00:00:00* Test Item Value Reference Range Interpretation Comme nts HEPATITIS A IgM (test code = 08911) NON-REACTIVE HEPATITIS B CORE IgM (test c ode = 4644) NON-REACTIVE HEPATITIS B SURF AG (test co de = 2739) NON-REACTIVE HEPATITIS C ANTIBODY (test c ode = 4675) NON-REACTIVE INTERPRETATION HEPATITIS A: (test code = 2552) (NOTE) INTERPRETATION HEPATITIS B: (test code = 00670) (NOTE) INTERPRETATION HEPATITIS C: (test code = 27485) (NOTE) Richi [id number] 00:00:00* Test Item Value Reference Range Interpretation Comme nts RPR RESULT (test code = 3501) NON-REACTIVE RPR TITER (test code = 3500) NOT INDIC. TITER Richi PanchalCT/NG, TMA, [id number] 00:00:00* Test Item Value Reference Range Interpretation Comme nts CHLAMYDIA, NAAT, URINE (test code = 38051) POSITIVE GONORRHEA, NAAT, URINE (test code = 31779) NEGATIVE Richi PanchalHIV 1/2 4TH GEN, RFLX [id number] 00:00:00* Test Item Value Reference Range Interpretation Comme nts HIV 1/2 4TH GEN, RFLX CONF ( test code = 3514) NON-REACTIVE Richi PanchalHERPES SIMPLEX [id number] 00:00:00* Test Item Value Reference Range Interpretation Comme nts HERPES SIMPLEX AB, IgM (test code = 86634) 0.95 INDEX Richi PanchalHERPES SIMPLEX 1/2 [id number] 00:00:00* Test Item Value Reference Range Interpretation Comme nts HERPES SIMPLEX 1 AB, IgG (te st code = 24506) 0.031 INDEX HERPES SIMPLEX 2 AB, IgG (te st code = 80814) 0.085 INDEX Richi PanchalACUTE HEPATITIS [id number] 00:00:00* Test Item Value Reference Range Interpretation Comme nts HEPATITIS A IgM (test code = 13453) NON-REACTIVE HEPATITIS B CORE IgM (test c ode = 4644) NON-REACTIVE HEPATITIS B SURF AG (test co de = 2739) NON-REACTIVE HEPATITIS C ANTIBODY (test c ode = 4675) NON-REACTIVE INTERPRETATION HEPATITIS A: (test code = 2552) (NOTE) INTERPRETATION HEPATITIS B: (test code = 80732) (NOTE) INTERPRETATION HEPATITIS C: (test code = 22856) (NOTE) Richi [id number] 00:00:00* Test Item Value Reference Range Interpretation Comme nts RPR RESULT (test code = 3501) NON-REACTIVE RPR TITER (test code = 3500) NOT INDIC. TITER Richi PanchalCT/NG, TMA, [id number] 00:00:00* Test Item Value Reference Range Interpretation Comme nts CHLAMYDIA, NAAT, URINE (test code = 58720) POSITIVE GONORRHEA, NAAT, URINE (test code = 21228) NEGATIVE Richi PanchalSARS-CoV-2 (COVID-19) by RT-PCR (HIGH RISK)2020-05-15 00:00:00* Test Item Value Reference Range Interpretation Comme nts SARS-CoV-2 INTERPRETATION (t est code = 47300) NEGATIVE SOURCE (test code = 57583) NOT SPECIFIED Richi PanchalSARS-CoV-2 (COVID-19) by RT-PCR (HIGH RISK)2020-05-15 00:00:00* Test Item Value Reference Range Interpretation Comme nts SARS-CoV-2 INTERPRETATION (t est code = 11524) NEGATIVE SOURCE (test code = 49145) NOT SPECIFIED Richi Panchal Notes |||| Date/Time Note Provider Source Richi Roberson [facility]2024-12-20 00:00:00|||| Richi Roberson [facility]"
--- NOTE | 2024-09-23 13:55 | EDPHYS ---
Physician Documentation [facility] Name: Cali Snyder Age: 23 yrs Sex: Male : 2000 Arrival Date: 09/23/2024 Time: 13:13 Bed IW4 Private MD: ED Physician Kranthi Pina HPI: 09/23 13:59 This 23 yrs old Male presents to ER via Ambulatory with complaints of Can't sb4 Sleep. 14:00 patient states that he has gotten minimal sleep over the past 3-4 days, has tried sb4 nyquil and melatonin with minimal improvement in sleep. also reports h/o anxiety. no other complaints at this time. Historical: - Allergies: 13:48 EXCEDRIN; ap3 - Home Meds: 13:48 None [Active]; ap3 - Immunization history:: Adult Immunizations up to date. - Infectious Disease History:: Denies. - Social history:: recently quit vaping a week ago, Smoking status: unknown. ROS: 14:00 Constitutional: Negative for fever, chills, and weight loss, sb4 14:00 All other systems are negative, Exam: 14:00 Constitutional: This is a well developed, well nourished patient who is awake, alert, sb4 and in no acute distress. Head/Face: Normocephalic, atraumatic. Eyes: Extra-ocular motions intact. Periorbital areas with no swelling, redness, or edema. ENT: Mucous membranes moist. Respiratory: No increased work of breathing, no retractions or nasal flaring. Skin: Warm, dry with normal turgor. Normal color with no rashes, no lesions, and no evidence of cellulitis. Vital Signs: 13:47 BP 126 / 76; Pulse 87; Resp 17; Temp 98.7; Pulse Ox 97% on R/A; Weight 54.43 kg; Height ap3 5 ft. 6 in. ; 13:47 Body Mass Index 19.37 (54.43 kg, 167.64 cm) ap3 MDM: 13:20 Medical Screening Exam initiated sb4 14:00 Data reviewed: vital signs, nurses notes, and as a result, I will discharge patient. sb4 Counseling: I had a detailed discussion with the patient and/or guardian regarding the historical points, exam findings, and any diagnostic results supporting the discharge/admit diagnosis, the need for outpatient follow up, for definitive care, to return to the emergency department if symptoms worsen or persist or if there are any questions or concerns that arise at home. Administered Medications: No medications were administered Disposition: 17:40 I was immediately available on-site in the Emergency Department for consultation in the ms3 care of the patient. Disposition Summary: 09/23/24 13:55 Discharge Ordered Notes: Location: Home sb4 Problem: new sb4 Symptoms: are unchanged sb4 Condition: Stable sb4 Diagnosis - Insomnia sb4 Followup: sb4 - With: John Paul Erickson, - When: As needed - Reason: Recheck today's complaints, Continuance of care, Re-evaluation by your physician Discharge Instructions: - Discharge Summary Sheet sb4 - Insomnia sb4 Forms: - Work release form ap3 - Patient Portal Instructions sb4 - Leadership Thank You Letter sb4 Prescriptions: - Hydroxyzine HCl 50 mg Oral tablet - take 1 tablet ORAL route At bedtime As needed; 20 tablet; Refills: 0, Product sb4 Selection Permitted Signatures: Sophia De Jesus, RN RN ap3 Kranthi Pina DO DO ms3 Rohini Clark PA-C PAArabella sb4
--- NOTE | 2024-09-23 13:55 | ER ---
Nurse's Notes [facility] Name: Cali Snyder Age: 23 yrs Sex: Male : 2000 Arrival Date: 09/23/2024 Time: 13:13 Bed IW4 Private MD: Diagnosis: Insomnia Presentation: 09/23 13:47 Chief complaint: Patient states: he has not been able to sleep for 3-4 days. patient ap3 reports this has happened in the past after smoking CBD, but denies use of any CBD or drugs. patient reports recently quitting the use of vapes approx one week ago. Coronavirus screen: At this time, the client does not indicate any symptoms associated with coronavirus-19. Ebola Screen: No symptoms or risks identified at this time. Initial Sepsis Screen: Does the patient meet any 2 criteria? No. Patient's initial sepsis screen is negative. Does the patient have a suspected source of infection? No. Patient's initial sepsis screen is negative. Risk Assessment: Do you want to hurt yourself or someone else? Patient reports no desire to harm self or others. Onset of symptoms is unknown. 13:47 Method Of Arrival: Ambulatory ap3 13:47 Acuity: LIZBETH 3 ap3 Triage Assessment: 13:50 General: Appears in no apparent distress. Behavior is calm, cooperative, appropriate ap3 for age. Pain: Denies pain. Neuro: Level of Consciousness is awake, alert, obeys commands, Oriented to person, place, time, situation, Reports insomnia . Cardiovascular: Patient's skin is warm and dry. Respiratory: Airway is patent Respiratory effort is even, unlabored, Respiratory pattern is regular, symmetrical. Historical: - Allergies: 13:48 EXCEDRIN; ap3 - Home Meds: 13:48 None [Active]; ap3 - Immunization history:: Adult Immunizations up to date. - Infectious Disease History:: Denies. - Social history:: recently quit vaping a week ago, Smoking status: unknown. Screenin:50 [facility] ED Fall Risk Assessment (Adult) History of falling in the last 3 months, ap3 including since admission No falls in past 3 months (0 pts) Confusion or Disorientation No (0 pts) Intoxicated or Sedated No (0 pts) Impaired Gait No (0 pts) Mobility Assist Device Used No (0 pt) Altered Elimination No (0 pt) Score/Fall Risk Level 0 - 2 = Low Risk Oriented to surroundings, Maintained a safe environment, Educated pt \T\ family on fall prevention, incl call for assistance when getting out of bed, Assessed \T\ reinforced patient's understanding of fall precautions, Hourly rounding (assess needs \T\ fall precautionary measures) done, Used ambulatory aids as needed (educated on \T\ assisted with). Abuse screen: Denies threats or abuse. Nutritional screening: No deficits noted. Tuberculosis screening: No symptoms or risk factors identified. Vital Signs: 13:47 BP 126 / 76; Pulse 87; Resp 17; Temp 98.7; Pulse Ox 97% on R/A; Weight 54.43 kg; Height ap3 5 ft. 6 in. ; 13:47 Body Mass Index 19.37 (54.43 kg, 167.64 cm) ap3 ED Course: 13:17 Patient arrived in ED. cj3 13:20 Rohini Clark PA-C is PHCP. sb4 13:20 Kranthi Pina DO is Attending Physician. sb4 13:48 Triage completed. ap3 13:51 Arm band placed on right wrist. ap3 13:54 John Paul Erickson DO is Referral Physician. sb4 14:47 Patient has correct armband on for positive identification. Provided Education on: ap3 discharge instructions. 14:47 No provider procedures requiring assistance completed. Patient did not have IV access ap3 during this emergency room visit. Administered Medications: No medications were administered Medication: 14:47 VIS not applicable for this client. ap3 Outcome: 13:55 Discharge ordered by MD. sb4 14:47 Discharged to home ambulatory, with family, ap3 14:47 Condition: good 14:47 Discharge instructions given to patient, family, Instructed on discharge instructions, follow up and referral plans. medication usage, Demonstrated understanding of instructions, follow-up care, medications, Prescriptions given X 1, 14:47 Patient left the ED. ap3 Signatures: Sophia De Jesus RN RN ap3 Rohini Clark PA-C PA-C sb4 Chelsey Hyde cj3 Corrections: (The following items were deleted from the chart) 13:50 13:47 Chief complaint: Patient states: he has not been able to sleep for 3-4 days. ap3 patient reports this has happened in the past after smoking CBD, but denies use of any CBD or drugs. ap3
[2024-09-23 15:03] VITALS: BP 126/76; TEMP 98.7; O2SAT 97
== END 2024-09-23 14:47 | disposition home or self-care (01) ==
LOC: ER 13:13
DX: G47.00 Insomnia, unspecified (principal)
CPT/HCPCS: 99283